=== PATIENT | male | born 1950 | race Caucasian/White ===

== ENCOUNTER 2021-11-28 10:37 | Emergency (ER) | payer OTHER ==
[2021-11-28 10:52] VITALS: BP 133/62; PULSE 93; TEMP 98.5; BMI 29.1
[2021-11-28] MEDS ORDERED: LIDOCAINE HCL 1%, 10 MG/ML (50 mL VIAL) SQ ONE (11:32)
== END 2021-11-28 12:07 | disposition home or self-care (01) ==
LOC: JERFT 10:37
PROC: 0HQGXZZ Repair Left Hand Skin, External Approach (ICD-10-PCS; principal; 2021-11-28)
DX: S61.412A Laceration without foreign body of left hand, initial encounter (principal); W25.XXXA Contact with sharp glass, initial encounter
CPT/HCPCS: 12002-25; 99283-25